=== PATIENT | female | born 1935 | race Caucasian/White ===

== ENCOUNTER 2018-12-27 10:48 | Outpatient (CLI) | payer OTHER ==
[~2018-12-27] VITALS: Ht 121.9 cm; Wt 53.5 kg
== END 2018-12-27 11:15 | disposition home or self-care (01) ==
LOC: OFIC 805 10:48
DX: H90.3 Sensorineural hearing loss, bilateral (principal); H61.23 Impacted cerumen, bilateral; H93.11 Tinnitus, right ear

== ENCOUNTER 2019-02-14 10:58 | Outpatient (CLI) | payer OTHER ==
[~2019-02-14] VITALS: Ht 121.9 cm; Wt 54.4 kg
== END 2019-02-14 11:15 | disposition home or self-care (01) ==
LOC: OFIC 805 10:58
DX: H90.3 Sensorineural hearing loss, bilateral (principal); H93.11 Tinnitus, right ear

== ENCOUNTER 2019-02-14 14:13 | Outpatient (CLI) | payer OTHER | END 2019-02-14 14:24 | disposition home or self-care (01) | LOC: LAB 14:13 | DX: H93.11 Tinnitus, right ear (principal); H90.3 Sensorineural hearing loss, bilateral; R42 Dizziness and giddiness; Z51.81 Encounter for therapeutic drug level monitoring ==

== ENCOUNTER 2019-03-21 12:13 | Outpatient (CLI) | payer OTHER ==
[~2019-03-21] VITALS: Ht 121.9 cm; Wt 52.2 kg
== END 2019-03-21 12:30 | disposition home or self-care (01) ==
LOC: OFIC 805 12:13
DX: H90.3 Sensorineural hearing loss, bilateral (principal); H93.11 Tinnitus, right ear